=== PATIENT | female | born 1965 | race African-American/Black ===

== ENCOUNTER 2016-11-21 19:52 | Inpatient (IN) | payer BC ==
[2016-11-21] MEDS ORDERED: ASPIRIN 81 MG TABLET, CHEWABLE PO ONE (20:42)
[2016-11-21] MEDS ORDERED: NORMAL SALINE 1000 ML 1,000 ML IV ONE (20:42)
--- NOTE | 2016-11-21 20:44 | ER Document Report ---
ED Medical Screen (RME) - General Chief Complaint: Chest Pressure Stated Complaint: DIFFICULTY BREATHING Time Seen by Provider: 11/21/16 20:42 Notes: Patient is a 51-year-old female who presents 8 hours of left-sided chest pain and shortness of breath while she was eating lunch. She has never had symptoms like this before. She had a 102 fever earlier today. Denies hemoptysis, leg swelling, back pain, cough, abdominal pain, recent travel or estrogen use. PE: Tachycardia, Lungs CTAB, No respiratory distress. I have greeted and performed a rapid initial assessment of this patient. A comprehensive ED assessment and evaluation of the patient, analysis of test results and completion of the medical decision making process will be conducted by additional ED providers. TRAVEL OUTSIDE OF THE [place] IN LAST 30 DAYS: No - Related Data Allergies/Adverse Reactions: No Known Allergies Allergy (Unverified 11/21/16 20:39) Past Medical History Renal/ Medical History: Denies: Hx Peritoneal Dialysis Physical Exam - Vital signs Vitals: Temp Pulse Resp BP Pulse Ox 98.7 F 124 H 32 H 164/82 H 100 11/21/16 20:06 11/21/16 20:06 11/21/16 20:06 11/21/16 20:06 11/21/16 20:06 Course - Vital Signs Vital signs: Temp Pulse Resp BP Pulse Ox 98.7 F 124 H 32 H 164/82 H 100 11/21/16 20:06 11/21/16 20:06 11/21/16 20:06 11/21/16 20:06 11/21/16 20:06
--- NOTE | 2016-11-21 20:56 | RADIOLOGY REPORT (SQ) ---
EXAM DESCRIPTION: CHEST PA/LAT COMPLETED DATE/TIME: 11/21/2016 8:29 pm REASON FOR STUDY: chest pain, SOB COMPARISON: None. EXAM PARAMETERS: NUMBER OF VIEWS: two views TECHNIQUE: Digital Frontal and Lateral radiographic views of the chest acquired. RADIATION DOSE: NA LIMITATIONS: none FINDINGS: LUNGS AND PLEURA: No pneumothorax. Left basilar airspace disease and small pleural effusi on. Right lung appears clear. MEDIASTINUM AND HILAR STRUCTURES: No masses or contour abnormalities. HEART AND VASCULAR STRUCTURES: Heart normal size. No evidence for failure. BONES: No acute findings. HARDWARE: None in the chest. OTHER: No other significant finding. IMPRESSION: Left basilar airspace disease and small pleural effusion. TECHNICAL DOCUMENTATION: JOB ID: [id number] [employer]- All Rights Reserved
[2016-11-21 20:58] LABS: ABSOLUTE LYMPHOCYTES (AUTO) 1.1 10^3/uL (0.5-4.7); BASOPHILS % (AUTO) 0.4 % (0-2); EOSINOPHILS % (AUTO) 0.2 % (0-6); HEMATOCRIT 30.4 % (36.0-47.0); HEMOGLOBIN 9.8 g/dL (12.0-15.5); LYMPHOCYTES % (AUTO) 10.5 % (13-45); MEAN CORPUSCULAR HEMOGLOBIN 23.8 pg (27.0-33.4); MEAN CORPUSCULAR VOLUME 74 fl (80-97); MONOCYTES % (AUTO) 9.7 % (3-13); RED BLOOD COUNT 4.09 10^6/uL (3.72-5.28); RED CELL DISTRIBUTION WIDTH 18.4 % (11.5-14.0); SEGMENTED NEUTROPHILS % (AUTO) 79.2 % (42-78); WHITE BLOOD COUNT 10.2 10^3/uL (4.0-10.5)
--- NOTE | 2016-11-21 21:05 | ER Document Report ---
ED General - General Chief Complaint: Chest Pressure Stated Complaint: DIFFICULTY BREATHING Time Seen by Provider: 11/21/16 20:42 Notes: Patient is a 51-year-old female without past medical history who presents with acute onset of chest pain shortness of breath approximately 6 hours prior to arrival. Patient notes that while she was eating lunch she suddenly developed acute shortness of breath and a feeling of diffuse chest wall pain which she described as a sharp, constant pain. Nothing improves or worsens her pain. Denies any history of similar symptoms in the past. No history of DVT or pulmonary embolus, no use of estrogen. She denies any cardiac history. Denies any hemoptysis. No leg swelling or recent travel. TRAVEL OUTSIDE OF THE [place] IN LAST 30 DAYS: No - Related Data Allergies/Adverse Reactions: No Known Allergies Allergy (Unverified 11/21/16 20:39) Home Medications: Current Home Medications No Home Medications 11/22/16 [History] Past Medical History - General Information source: Patient - Social History Smoking Status: Never Smoker Chew tobacco use (# tins/day): No Frequency of alcohol use: None Drug Abuse: None Lives with: Spouse/Significant other Family History: Reviewed & Not Pertinent Patient has suicidal ideation: No Patient has homicidal ideation: No Renal/ Medical History: Denies: Hx Peritoneal Dialysis Surgical Hx: Negative - Immunizations Hx Diphtheria, Pertussis, Tetanus Vaccination: No Review of Systems - Review of Systems Notes: Constitutional: Negative for fever. HENT: Negative for sore throat. Eyes: Negative for visual changes. Cardiovascular: Positive for chest pain. Respiratory: Positive for shortness of breath. Gastrointestinal: Negative for abdominal pain, vomiting or diarrhea. Genitourinary: Negative for dysuria. Musculoskeletal: Negative for back pain. Skin: Negative for rash. Neurological: Negative for headaches, weakness or numbness. 10 point ROS negative except as marked above and in HPI. Physical Exam - Vital signs Vitals: Temp Pulse Resp BP Pulse Ox 98.7 F 124 H 32 H 164/82 H 100 11/21/16 20:06 11/21/16 20:06 11/21/16 20:06 11/21/16 20:06 11/21/16 20:06 Interpretation: Tachycardic, Tachypneic Notes: PHYSICAL EXAMINATION: GENERAL: Appears mildly uncomfortable but in no acute distress. HEAD: Atraumatic, normocephalic. EYES: Pupils equal round and reactive to light, extraocular movements intact, sclera anicteric, conjunctiva are normal. ENT: nares patent, oropharynx clear without exudates. Moist mucous membranes. NECK: Normal range of motion, supple without lymphadenopathy LUNGS: Breath sounds clear to auscultation bilaterally and equal. No wheezes rales or rhonchi. Moderate tachypnea HEART: Regular tachycardia without murmurs ABDOMEN: Soft, nontender, normoactive bowel sounds. No guarding, no rebound. No masses appreciated. EXTREMITIES: Normal range of motion, no pitting or edema. No cyanosis. NEUROLOGICAL: No focal neurological deficits. Moves all extremities spontaneously and on command. PSYCH: Normal mood, normal affect. SKIN: Warm, Dry, normal turgor, no rashes or lesions noted. Course - Re-evaluation Re-evalutation: 11/21/16 21:06 Presentation of chest pain in an otherwise well appearing patient. Low clinical suspicion for ACS given clinical history, exam, EKG without ST elevations or depressions, and negative initial troponin. HEART score less than or equal to 3. CXR without evidence of pneumothorax or pneumonia. No widened mediastinum. Aortic dissection also seems unlikely given history, symmetric pulses, CXR, and vitals. My primary concern for this patient is that she has an acute pulmonary embolus given that she is tachycardic, tachypneic and had acute onset of her chest pain and shortness of breath. She also has a small pleural effusion at the left lung concerning again for an acute pulmonary embolus. Due to the degree of my clinical suspicion, will proceed directly to a CTA. 11/21/16 22:54 CT demonstrated bilateral pulmonary emboli consistent with my pretest concern. Patient will be given a dose of Lovenox 75 mg subcutaneously. I discussed this case with Dr. Junior Hutchinson who will admit. I have discussed the findings of the CT scan with the patient as well as her need for admission. On reassessment her vitals have mostly improved with her tachycardia now resolved rate at 84 this time. She however remained mildly tachypneic with a respiratory rate of 28 at the time of my assessment. However she is saturating 100% on room air and is in no respiratory distress. - Vital Signs Vital signs: Temp Pulse Resp BP Pulse Ox 98.7 F 124 H 26 H 132/71 H 100 11/21/16 20:07 11/21/16 20:07 11/22/16 00:01 11/21/16 23:01 11/22/16 00:01 - Laboratory Result Diagrams: 11/21/16 20:45 11/21/16 20:45 Laboratory results interpreted by me: 11/21/16 11/21/16 11/21/16 20:45 20:45 20:45 Hgb 9.8 L Hct 30.4 L MCV 74 L MCH 23.8 L RDW 18.4 H Seg Neutrophils % 79.2 H Lymphocytes % 10.5 L Sodium 136.7 L Glucose 143 H Iron 16.3 L Total Protein 8.6 H - Diagnostic Test Radiology reviewed: Image reviewed, Reports reviewed Radiology results interpreted by me: 11/21/16 21:07 Chest x-ray: Left pleural effusion - EKG Interpretation by Me Additional EKG results interpreted by me: 11/21/16 21:07 Sinus tachycardia. Rate 112. No ST elevations or depressions. QTC is 416. Discharge - Discharge Clinical Impression: Bilateral pulmonary embolism Disposition: ADMITTED INPATIENT Admitting Provider: [facility] Admitted: Telemetry
[2016-11-21 21:21] LABS: ALANINE AMINOTRANSFERASE 23 U/L (9-52); ALBUMIN 4.6 g/dL (3.5-5.0); ALKALINE PHOSPHATASE 54 U/L (38-126); ANION GAP 13 (5-19); ASPARTATE AMINO TRANSFERASE 21 U/L (14-36); BILIRUBIN,DIRECT 0.3 mg/dL (0.0-0.4); BILIRUBIN,TOTAL 0.5 mg/dL (0.2-1.3); BLOOD UREA NITROGEN 8 mg/dL (7-20); CALCIUM 9.9 mg/dL (8.4-10.2); CARBON DIOXIDE 22 mmol/L (22-30); CHLORIDE 102 mmol/L (98-107); CREATINE KINASE 88 U/L (30-135); CREATININE RESULT 0.64 mg/dL (0.52-1.25); GLUCOSE 143 mg/dL (75-110); POTASSIUM 4.2 mmol/L (3.6-5.0); SODIUM 136.7 mmol/L (137-145); TOTAL PROTEIN 8.6 g/dL (6.3-8.2)
[2016-11-21 21:35] LABS: TROPONIN I < 0.012 ng/mL
--- NOTE | 2016-11-21 22:45 | RADIOLOGY REPORT (SQ) ---
EXAM DESCRIPTION: CTA CHEST COMPLETED DATE/TIME: 11/21/2016 10:27 pm REASON FOR STUDY: sob, eval pe COMPARISON: None. TECHNIQUE: CT scan of the chest performed using helical scanning technique with dynamic intravenous contrast injection. Images reviewed with lung, soft tissue and bone windows. Reconstructed coronal and sagittal MPR images reviewed. Additional 3 dimensional post-processing performed to develop Maximal Intensity Projection images (CT P). All images stored on PACS. All CT scanners at this facility use dose modulation, iterative reconstruction, and/or weight based d osing when appropriate to reduce radiation dose to as low as reasonably achievable (ALARA). [facility]: Dose Right [facility]: CareDose [facility]: Dose Right [facility]: Teradose 4D [facility]: [email or web address] CONTRAST TYPE AND DOSE: 100 mL Isovue 370- low osmolar. RENAL FUNCTION: GFR > 60. RADIATION DOSE: 21.14 mGy. LIMITATIONS: None. FINDINGS: LUNGS AND PLEURA: Small left pleural effusion. Scattered areas of atelectasis and ground- glass opacity are present in the lingula and left lower lobe. No pneumothorax. AORTA AND GREAT VESSELS: No aneurysm or dissection. HEART: No pericardial effusion. PULMONARY ARTERIES: Multiple emboli visualized in the lower lobe pulmonary arteries . No saddle or m ain pulmonary artery embolus. HILAR AND MEDIASTINAL STRUCTURES: No identified masses or abnormal nodes. HARDWARE: None in the chest. UPPER ABDOMEN: No significant findings. Limited exam. THYROID AND OTHER SOFT TISSUES: No masses. No adenopathy. BONES: No acute or significant finding. 3D MIPS: Confirm above findings. OTHER: No other significant finding. IMPRESSION: Multiple emboli visualized in the lower lobe pulmonary arteries . Small left pleural eff usion. Scattered areas of atelectasis and ground-glass opacity are present in the lingula and left l ower lobe. COMMENT: These results were communicated to Dr. Penn at 2238 hours. Results were confirmed and re ad back. TECHNICAL DOCUMENTATION: JOB ID: [id number] Quality ID # [id number]: Final reports with documentation of one or more dose reduction techniques (e.g., Au tomated exposure control, adjustment of the mA and/or kV according to patient size, use of iterative reconstruction technique) 2010 [employer]- All Rights Reserved
[2016-11-21] MEDS ORDERED: ACETAMINOPHEN 325 MG TABLET PO PRN (22:48)
[2016-11-21] MEDS ORDERED: MAGNESIUM HYDROXIDE SUSP 30 ML UDCUP PO PRN (22:48)
[2016-11-21] MEDS ORDERED: ONDANSETRON HCL INJ/PF 4 MG/2 ML SDV IV PRN (22:48)
[2016-11-21] MEDS ORDERED: IPRATROPIUM/ALBUTEROL 0.5-2.5 MG/3 ML AMPUL NEB PRN (22:48)
[2016-11-21] MEDS ORDERED: ENOXAPARIN SODIUM INJ 80 MG/0.8 ML DISP.SYRIN SUBCUT ONE (23:45)
[2016-11-22] MEDS ORDERED: IRON POLYSACCHARIDES COMPLEX 150 MG CAPSULE PO ONE (01:15)
[2016-11-22 03:06] LABS: ANION GAP 10 (5-19); BLOOD UREA NITROGEN 6 mg/dL (7-20); CALCIUM 9.1 mg/dL (8.4-10.2); CARBON DIOXIDE 21 mmol/L (22-30); CHLORIDE 109 mmol/L (98-107); CREATINE KINASE 75 U/L (30-135); CREATININE RESULT 0.57 mg/dL (0.52-1.25); GLUCOSE 116 mg/dL (75-110); POTASSIUM 4.1 mmol/L (3.6-5.0); SODIUM 139.5 mmol/L (137-145)
[2016-11-22 03:17] LABS: CREATINE KINASE MB 0.25 ng/mL (<4.55)
[2016-11-22 03:19] LABS: TROPONIN I < 0.012 ng/mL
--- NOTE | 2016-11-22 04:49 | PDOC H&P ---
History of Present Illness Admission Date/PCP: 11/21/16 22:48 Patient complains of: Shortness of breath History of Present Illness: GEETA PERAZA is a 51 year old female without past medical history who noted an abrupt onset of shortness of breath and nonproductive cough prompting to seek evaluation in the emergency room. She is found to have tachycardia, hypertension, tachypnea and bilateral pulmonary emboli, started on Lovenox and referred to the hospitalist for admission. Denies chest pain nausea vomiting or diaphoresis. She denies tobacco, recent history of immobility leg swelling trauma or infection. No regular medication use, no family history of blood clot. Number no recent colonoscopy, mammogram or Pap smear. Past Medical History Medical History: None EENT Medical History: Reports: None Neurological Medical History: Reports: None Renal/ Medical History: Reports: None Malignancy Medical History: Reports: None GI Medical History: Reports: None Musculoskeltal Medical History: Reports: None Skin Medical History: Reports: None Psychiatric Medical History: Reports: None Traumatic Medical History: Reports: None Hematology: Reports: None Infectious Medical History: Reports: None Social History Information Source: Patient Lives with: Spouse/Significant other Smoking Status: Never Smoker Drugs: None - Advance Directive Resuscitation Status: Full Code Family History Family History: Malignancy - Lung cancer in grandmother and mother Parental Family History Reviewed: Yes Children Family History Reviewed: Yes Sibling(s) Family History Reviewed.: Yes Medication/Allergy Home Medications: No Home Medications 11/22/16 Allergies/Adverse Reactions: No Known Allergies Allergy (Unverified 11/21/16 20:39) Review of Systems Constitutional: ABSENT: chills, fever(s), headache(s), weight gain, weight loss Eyes: ABSENT: visual disturbances Ears: ABSENT: hearing changes Cardiovascular: ABSENT: chest pain, dyspnea on exertion, edema, orthropnea, palpitations Respiratory: ABSENT: cough, hemoptysis Gastrointestinal: ABSENT: abdominal pain, constipation, diarrhea, hematemesis, hematochezia, nausea, vomiting Genitourinary: ABSENT: dysuria, hematuria Musculoskeletal: ABSENT: joint swelling Integumentary: ABSENT: rash, wounds Neurological: ABSENT: abnormal gait, abnormal speech, confusion, dizziness, focal weakness, syncope Psychiatric: ABSENT: anxiety, depression, homidical ideation, suicidal ideation Endocrine: ABSENT: cold intolerance, heat intolerance, polydipsia, polyuria Hematologic/Lymphatic: ABSENT: easy bleeding, easy bruising Physical Exam Vital Signs: Temp Pulse Resp BP Pulse Ox 98.7 F 124 H 26 H 132/71 H 100 11/21/16 20:07 11/21/16 20:07 11/22/16 00:01 11/21/16 23:01 11/22/16 00:01 General appearance: PRESENT: no acute distress, well-developed, well-nourished Head exam: PRESENT: atraumatic, normocephalic Eye exam: PRESENT: conjunctiva pink, EOMI, PERRLA. ABSENT: scleral icterus Ear exam: PRESENT: normal external ear exam Mouth exam: PRESENT: moist, tongue midline Neck exam: ABSENT: carotid bruit, JVD, lymphadenopathy, thyromegaly Respiratory exam: PRESENT: clear to auscultation aron. ABSENT: rales, rhonchi, wheezes Cardiovascular exam: PRESENT: RRR. ABSENT: diastolic murmur, rubs, systolic murmur Pulses: PRESENT: normal dorsalis pedis pul Vascular exam: PRESENT: normal capillary refill GI/Abdominal exam: PRESENT: normal bowel sounds, soft. ABSENT: distended, guarding, mass, organolmegaly, rebound, tenderness Rectal exam: PRESENT: deferred Extremities exam: PRESENT: full ROM. ABSENT: calf tenderness, clubbing, pedal edema Neurological exam: PRESENT: alert, awake, oriented to person, oriented to place , oriented to time, oriented to situation, CN II-XII grossly intact. ABSENT: motor sensory deficit Psychiatric exam: PRESENT: appropriate affect, normal mood. ABSENT: homicidal ideation, suicidal ideation Skin exam: PRESENT: dry, intact, warm. ABSENT: cyanosis, rash Results Laboratory Results: 11/22/16 02:35 11/22/16 02:35 Sodium 139.5 Potassium 4.1 Chloride 109 H Carbon Dioxide 21 L Anion Gap 10 BUN 6 L Creatinine 0.57 Est GFR ( Amer) > 60 Est GFR (Non-Af Amer) > 60 Glucose 116 H Calcium 9.1 11/22/16 11/22/16 02:35 02:35 Creatine Kinase 75 CK-MB (CK-2) 0.25 Troponin I < 0.012 Impressions: Chest X-Ray 11/21/16 20:17 IMPRESSION: Left basilar airspace disease and small pleural effusion. Chest/Abdomen CTA 11/21/16 21:05 IMPRESSION: Multiple emboli visualized in the lower lobe pulmonary arteries . Small left pleural effusion. Scattered areas of atelectasis and ground-glass opacity are present in the lingula and left lower lobe. Assessment & Plan - Diagnosis (1) Anemia Is this a current diagnosis for this admission?: YesPlan: Microcytic anemia likely secondary to an deficiency. She denies menorrhagia darker pink colored urine dark or red stools. Iron initiated empirically, anemia workup ordered follow-up CBC pending. (2) Bilateral pulmonary embolism Is this a current diagnosis for this admission?: YesPlan: acute problem, hemodynamically stable, Lovenox 1 mg/kg ordered, hematology consult pending for unprovoked PE complicated by family history of malignancy. - Time Time Spent: 50 to 70 Minutes - Inpatient Certification Medical Necessity: Need Close Monitoring Due to Risk of Patient Decompensation
--- NOTE | 2016-11-22 07:15 | EKG REPORT ---
SEVERITY:- ABNORMAL ECG - SINUS TACHYCARDIA NONSPECIFIC T ABNORMALITIES, DIFFUSE LEADS : Confirmed by: Charisse Orona MD 22-Nov-2016 07:13:56
[2016-11-22 09:07] LABS: CREATINE KINASE MB 0.24 ng/mL (<4.55)
[2016-11-22 09:11] LABS: TROPONIN I < 0.012 ng/mL
[2016-11-22] MEDS: DOCUSATE SODIUM 100 MG CAPSULE PO SCH ×2 (10:14→17:02)
[2016-11-22] MEDS: IRON POLYSACCHARIDES COMPLEX 150 MG CAPSULE PO SCH (10:14)
[2016-11-22] MEDS: ENOXAPARIN SODIUM INJ 80 MG/0.8 ML DISP.SYRIN SUBCUT SCH ×2 (10:14→23:49)
[2016-11-22] MEDS ORDERED: MAGNESIUM HYDROXIDE SUSP 30 ML UDCUP PO PRN (13:22)
[2016-11-22] MEDS ORDERED: ACETAMINOPHEN 325 MG TABLET PO PRN (13:23)
[2016-11-22] MEDS ORDERED: ONDANSETRON HCL INJ/PF 4 MG/2 ML SDV IV PRN (13:23)
--- NOTE | 2016-11-22 14:34 | PDOC PROGRESS REPORT ---
Subjective Progress Note for:: 11/22/16 Subjective:: Patient is seen on morning rounds. She is presently resting in bed. She denies any acute shortness of breath or dyspnea. She does admit to some midsternal chest discomfort with deep inspiration. She denies any cough. She has not had any recent upper respiratory infections. She states her shortness of breath occurred acutely yesterday. She denies any other complaints at the present time. Rest of the review of systems is negative Physical Exam Vital Signs: Temp Pulse Resp BP Pulse Ox 98.2 F 119 H 18 125/69 93 11/22/16 12:24 11/22/16 14:13 11/22/16 12:24 11/22/16 12:24 11/22/16 12:24 General appearance: PRESENT: no acute distress, well-developed, well-nourished Head exam: PRESENT: atraumatic Eye exam: PRESENT: conjunctival injection Ear exam: PRESENT: normal external ear exam Mouth exam: PRESENT: moist, tongue midline Neck exam: ABSENT: carotid bruit, JVD, lymphadenopathy, thyromegaly Respiratory exam: PRESENT: crackles, symmetrical, unlabored - left base Cardiovascular exam: PRESENT: RRR. ABSENT: diastolic murmur, rubs, systolic murmur Pulses: PRESENT: normal dorsalis pedis pul Vascular exam: PRESENT: normal capillary refill GI/Abdominal exam: PRESENT: normal bowel sounds, soft. ABSENT: distended, guarding, mass, organolmegaly, rebound, tenderness Rectal exam: PRESENT: deferred Extremities exam: PRESENT: full ROM. ABSENT: calf tenderness, clubbing, pedal edema Neurological exam: PRESENT: alert, awake, oriented to person, oriented to place , oriented to time, oriented to situation, CN II-XII grossly intact. ABSENT: motor sensory deficit Psychiatric exam: PRESENT: appropriate affect, normal mood. ABSENT: homicidal ideation, suicidal ideation Skin exam: PRESENT: dry, intact, warm. ABSENT: cyanosis, rash Results Laboratory Results: 11/22/16 02:35 11/22/16 02:35 Sodium 139.5 Potassium 4.1 Chloride 109 H Carbon Dioxide 21 L Anion Gap 10 BUN 6 L Creatinine 0.57 Est GFR ( Amer) > 60 Est GFR (Non-Af Amer) > 60 Glucose 116 H Calcium 9.1 11/22/16 11/22/1611/22/17 02:35 02:35 08:26 Creatine Kinase 75 64 CK-MB (CK-2) 0.25 Troponin I < 0.012 11/22/16 08:26 Creatine Kinase CK-MB (CK-2) 0.24 Troponin I < 0.012 Impressions: Chest X-Ray 11/21/16 20:17 IMPRESSION: Left basilar airspace disease and small pleural effusion. Chest/Abdomen CTA 11/21/16 21:05 IMPRESSION: Multiple emboli visualized in the lower lobe pulmonary arteries . Small left pleural effusion. Scattered areas of atelectasis and ground-glass opacity are present in the lingula and left lower lobe. Assessment & Plan - Diagnosis (1) Bilateral pulmonary embolism Is this a current diagnosis for this admission?: YesPlan: Patient on therapeutic lovenox. Hematology consulted (2) Iron deficiency anemia Qualifiers: Iron deficiency anemia type: unspecified iron deficiency Qualified Code(s): D50.9 - Iron deficiency anemia, unspecified Is this a current diagnosis for this admission?: YesPlan: Hematology consulted. Patient is aware of history of this but has taken no supplements (3) Ground glass opacity present on imaging of lung Is this a current diagnosis for this admission?: YesPlan: Left lower lobe will obtain pulmonary's input - Time Time Spent with patient: 25-34 minutes Critical Time spent with patient: 15-24 minutes Medications reviewed and adjusted accordingly: Yes Anticipated discharge: Home
[2016-11-22 15:19] LABS: CREATINE KINASE MB < 0.22 ng/mL (<4.55); TROPONIN I < 0.012 ng/mL
--- NOTE | 2016-11-22 23:48 | RADIOLOGY REPORT (SQ) ---
EXAM DESCRIPTION: CT ABD/PELVIS WITH IV ORAL COMPLETED DATE/TIME: 11/22/2016 11:26 pm REASON FOR STUDY: Cancer/Bilat PE COMPARISON: None. TECHNIQUE: CT scan of the abdomen and pelvis performed using helical scanning technique with dynamic intravenous contrast injection and with oral contrast. Images reviewed with lung, soft tissue, and b one windows. Reconstructed coronal and sagittal MPR images reviewed. Delayed images for evaluation of the urinary system also acquired. All images stored on PACS. All CT scanners at this facility use dose modulation, iterative reconstruction, and/or weight based d osing when appropriate to reduce radiation dose to as low as reasonably achievable (ALARA). [facility]: Dose Right [facility]: CareDose [facility]: Dose Right [facility]: Teradose 4D [facility]: [employer] CONTRAST TYPE AND DOSE: 100mL Isovue 370- low osmolar. RENAL FUNCTION: BUN 6 creatinine 0.57. RADIATION DOSE: 33.84mGy. LIMITATIONS: None. FINDINGS: LOWER CHEST: Small left pleural effusion with basilar atelectasis. LIVER: Normal size. No masses or dilated ducts. SPLEEN: Normal size. No focal lesions. PANCREAS: No masses. No significant calcifications. No adjacent inflammation or peripancreatic fluid collections. Pancreatic duct not dilated. GALLBLADDER: No identified stones by CT criteria. No inflammatory changes to suggest cholecystitis. ADRENAL GLANDS: No significant masses or asymmetry. RIGHT KIDNEY AND URETER: No solid masses. No significant calcifications. Mild hydronephrosis and hydroureter. LEFT KIDNEY AND URETER: No solid masses. No significant calcifications. Mild hydronephrosis and h ydroureter. AORTA AND VESSELS: No aneurysm. No dissection. Renal arteries, SMA, celiac without stenosis. RETROPERITONEUM: No retroperitoneal adenopathy, hemorrhage or masses. BOWEL AND PERITONEAL CAVITY: Large mass filling the abdomen which appears to originate in the pelvis. Heterogenous predominately solid mass. Transverse measurement 15.5 cm, AP measurement 9.3 cm, cran iocaudal measurement 17 cm. No free fluid. No bowel dilation or bowel wall thickening. APPENDIX: Normal. PELVIS: Large mass extending into the abdomen. Normal bladder. ABDOMINAL WALL: No masses. No hernias. BONES: No significant or acute findings. OTHER: No other significant finding. IMPRESSION: 1. LARGE MASS WHICH LIKELY ORIGINATES IN THE PELVIS, EXTENDING INTO THE ABDOMEN. PROBABLY ORIGINATIN G FROM ONE OF THE OVARIES OR POTENTIALLY FROM THE UTERUS. MILD HYDRONEPHROSIS AND HYDROURETER DUE TO EXTRINSIC COMPRESSION OF THE URETERS. 2. NO OTHER SIGNIFICANT FINDINGS IN THE ABDOMEN OR PELVIS. THERE IS A SMALL LEFT PLEURAL EFFUSION WI TH ATELECTASIS IN THE LUNG BASES. TECHNICAL DOCUMENTATION: JOB ID: [id number] Quality ID # [id number]: Final reports with documentation of one or more dose reduction techniques (e.g., Au tomated exposure control, adjustment of the mA and/or kV according to patient size, use of iterative reconstruction technique) 2010 [employer]- All Rights Reserved
--- NOTE | 2016-11-23 | RADIOLOGY REPORT (SQ) ---
EXAM DESCRIPTION: CT SOFT TISSUE NECK WITH COMPLETED DATE/TIME: 11/22/2016 11:26 pm REASON FOR STUDY: Cancer/BiLat PE COMPARISON: None. TECHNIQUE: Post IV contrasted scanning from skull base through lung apices with review of bone, soft tissue and lung windows. Reconstructed coronal and sagittal MPR images reviewed. All images stored on PACS. All CT scanners at this facility use dose modulation, iterative reconstruction, and/or weight based d osing when appropriate to reduce radiation dose to as low as reasonably achievable (ALARA). [facility]: Dose Right [facility]: CareDose [facility]: Dose Right [facility]: Teradose 4D [facility]: [employer] CONTRAST TYPE AND DOSE: 100mL Isovue 370- low osmolar. RENAL FUNCTION: BUN 6 creatinine 0.57. RADIATION DOSE: 7.64 mGy. LIMITATIONS: None. FINDINGS: SKULL BASE: Intact. MAJOR SALIVARY GLANDS: No solid or cystic masses. No inflammatory changes. LYMPHADENOPATHY: No adenopathy. MUCOSAL MASSES OR ASYMMETRY: No mucosal masses or asymmetry. LARYNX/CORDS: No abnormal findings. VASCULAR STRUCTURES: The major vessels are patent. LUNG APICES: Left pleural effusion. Pulmonary emboli seen on recent chest CTA. BONES: Intact. THYROID: Normal size. No masses. PARANASAL SINUSES: Clear. OTHER: No other significant finding. IMPRESSION: NO SIGNIFICANT FINDING IN THE SOFT TISSUES OF THE NECK. TECHNICAL DOCUMENTATION: JOB ID: [id number] Quality ID # [id number]: Final reports with documentation of one or more dose reduction techniques (e.g., Au tomated exposure control, adjustment of the mA and/or kV according to patient size, use of iterative reconstruction technique) 2010 [employer]- All Rights Reserved
[2016-11-23 06:04] LABS: HEMATOCRIT 29.2 % (36.0-47.0); HEMOGLOBIN 9.1 g/dL (12.0-15.5); HGB HCT DIFFERENCE -1.9; MEAN CORPUSCULAR HEMOGLOBIN 23.6 pg (27.0-33.4); MEAN CORPUSCULAR HGB CONC 31.3 g/dL (32.0-36.0); MEAN CORPUSCULAR VOLUME 76 fl (80-97); RED BLOOD COUNT 3.86 10^6/uL (3.72-5.28); RED CELL DISTRIBUTION WIDTH 18.2 % (11.5-14.0); WHITE BLOOD COUNT 7.1 10^3/uL (4.0-10.5)
[2016-11-23 06:36] LABS: ANION GAP 13 (5-19); BLOOD UREA NITROGEN 6 mg/dL (7-20); CALCIUM 8.9 mg/dL (8.4-10.2); CARBON DIOXIDE 21 mmol/L (22-30); CHLORIDE 105 mmol/L (98-107); CREATININE RESULT 0.57 mg/dL (0.52-1.25); GLUCOSE 89 mg/dL (75-110); LDH 475 U/L (313-618); POTASSIUM 4.3 mmol/L (3.6-5.0); SODIUM 139.3 mmol/L (137-145)
[2016-11-23 07:08] LABS: CARCINOEMBRYONIC ANTIGEN 1.9 ng/mL (<3.0)
--- NOTE | 2016-11-23 07:38 | PDOC CONSULTATION ---
Consultation Consult Date: 11/22/16 Consult reason:: PE History of Present Illness Admission Date/PCP: 11/21/16 22:48 History of Present Illness: GEETA PERAZA is a 51 year old AA female without past medical history who noted an abrupt onset of shortness of breath and nonproductive cough suddenly on the day of admit prompting her to seek evaluation in the emergency room. She is found to have tachycardia, hypertension, tachypnea and bilateral pulmonary emboli, started on Lovenox and referred to the hospitalist for admission. Denies chest pain nausea vomiting or diaphoresis. She denies tobacco, recent history of immobility leg swelling trauma or infection, regular medication use , no family history of blood clot, recent travel hormone use. She denies any recent colonoscopy, mammogram or Pap smear. Past Medical History EENT Medical History: Reports: None Neurological Medical History: Reports: None Renal/ Medical History: Reports: None Malignancy Medical History: Reports: None GI Medical History: Reports: None Musculoskeltal Medical History: Reports: None Skin Medical History: Reports: None Psychiatric Medical History: Reports: None Traumatic Medical History: Reports: None Hematology: Reports: None Infectious Medical History: Reports: None Social History Lives with: Spouse/Significant other Smoking Status: Never Smoker Drugs: None - Advance Directive Resuscitation Status: Full Code Family History Family History: Malignancy - Lung cancer in grandmother and mother Parental Family History Reviewed: Yes Children Family History Reviewed: Yes Sibling(s) Family History Reviewed.: Yes Medication/Allergy Home Medications: Multivits-Min/Iron/FA/Lutein [Centrum Silver Women Tablet] 1 tab PO DAILY Allergies/Adverse Reactions: No Known Allergies Allergy (Unverified 11/21/16 20:39) Review of Systems Constitutional: PRESENT: as per HPI Cardiovascular: PRESENT: as per HPI Respiratory: PRESENT: as per HPI Genitourinary: PRESENT: other - still menustrating Physical Exam Vital Signs: Temp Pulse Resp BP Pulse Ox 98.8 F 95 19 119/65 99 11/23/16 03:11 11/23/16 03:11 11/23/16 03:11 11/23/16 03:11 11/23/16 03:11 Intake & Output 11/22/16 11/23/16 11/24/16 06:59 06:59 06:59 Intake Total 1396 Output Total 950 Balance 446 Weight 72.8 kg General appearance: PRESENT: no acute distress Head exam: PRESENT: atraumatic, normocephalic Eye exam: PRESENT: EOMI, PERRLA Ear exam: PRESENT: normal external ear exam Neck exam: PRESENT: other - Left posterior cervical and occipital LN's rather fixed and firm Respiratory exam: PRESENT: clear to auscultation aron Cardiovascular exam: PRESENT: bradycardia Pulses: PRESENT: normal carotid pulses, normal femoral pulses GI/Abdominal exam: PRESENT: normal bowel sounds, soft Extremities exam: PRESENT: full ROM Neurological exam: PRESENT: alert, awake, oriented to person, oriented to place , oriented to time, oriented to situation, CN II-XII grossly intact Psychiatric exam: PRESENT: appropriate affect Results Laboratory Results: 11/23/16 05:22 11/23/16 05:22 11/23/16 11/23/16 05:22 05:22 WBC 7.1 RBC 3.86 Hgb 9.1 L Hct 29.2 L MCV 76 L MCH 23.6 L MCHC 31.3 L RDW 18.2 H Plt Count 297 Sodium 139.3 Potassium 4.3 Chloride 105 Carbon Dioxide 21 L Anion Gap 13 BUN 6 L Creatinine 0.57 Est GFR ( Amer) > 60 Est GFR (Non-Af Amer) > 60 Glucose 89 Calcium 8.9 11/22/16 11/22/16 11/22/16 02:35 02:35 08:26 Creatine Kinase 75 64 CK-MB (CK-2) 0.25 Troponin I < 0.012 11/22/16 11/22/16 11/22/16 08:26 14:09 14:09 Creatine Kinase 57 CK-MB (CK-2) 0.24 < 0.22 Troponin I < 0.012 < 0.012 Impressions: Chest X-Ray 11/21/16 20:17 IMPRESSION: Left basilar airspace disease and small pleural effusion. Chest/Abdomen CTA 11/21/16 21:05 IMPRESSION: Multiple emboli visualized in the lower lobe pulmonary arteries . Small left pleural effusion. Scattered areas of atelectasis and ground-glass opacity are present in the lingula and left lower lobe. Abdomen/Pelvis CT 11/22/16 00:00 IMPRESSION: 1. LARGE MASS WHICH LIKELY ORIGINATES IN THE PELVIS, EXTENDING INTO THE ABDOMEN. PROBABLY ORIGINATING FROM ONE OF THE OVARIES OR POTENTIALLY FROM THE UTERUS. MILD HYDRONEPHROSIS AND HYDROURETER DUE TO EXTRINSIC COMPRESSION OF THE URETERS. 2. NO OTHER SIGNIFICANT FINDINGS IN THE ABDOMEN OR PELVIS. THERE IS A SMALL LEFT PLEURAL EFFUSION WITH ATELECTASIS IN THE LUNG BASES. Soft Tissue Neck CT 11/22/16 00:00 IMPRESSION: NO SIGNIFICANT FINDING IN THE SOFT TISSUES OF THE NECK. Assessment & Plan - Diagnosis (1) Bilateral pulmonary embolism Is this a current diagnosis for this admission?: YesPlan: Proceed with hypercoaguable workup including tumor markers but given her lymph nodes will check a CT of the neck, abdomen and pelvis as well. Would then convert to Xarelto if no masses seen or biopsy expected. Also check her stool guaiacs. (2) Iron deficiency anemia Qualifiers: Iron deficiency anemia type: unspecified iron deficiency Qualified Code(s): D50.9 - Iron deficiency anemia, unspecified Is this a current diagnosis for this admission?: YesPlan: Continue with oral iron and check her stool guaiacs. - Time Time Spent: 50 to 70 Minutes Critical Time spent with patient: 25-34 minutes Medications reviewed and adjusted accordingly: Yes Anticipated discharge: Home Within: within 36 hours
--- NOTE | 2016-11-23 09:12 | PDOC PROGRESS REPORT ---
Subjective Progress Note for:: 11/23/16 Subjective:: Feeling better this am. Denies any abdominal pain. Less febrile and short of breath. Physical Exam Vital Signs: Temp Pulse Resp BP Pulse Ox 98.8 F 95 19 119/65 99 11/23/16 03:11 11/23/16 03:11 11/23/16 03:11 11/23/16 03:11 11/23/16 03:11 Intake & Output 11/22/16 11/23/16 11/24/16 06:59 06:59 06:59 Intake Total 1396 Output Total 950 Balance 446 Weight 72.8 kg General appearance: PRESENT: no acute distress Head exam: PRESENT: normocephalic Eye exam: PRESENT: conjunctiva pale, EOMI Mouth exam: PRESENT: moist GI/Abdominal exam: PRESENT: soft, other - On deep palpation with palpable fullness in the right to mid abdomen Psychiatric exam: PRESENT: appropriate affect Results Laboratory Results: 11/23/16 05:22 11/23/16 05:22 11/23/16 11/23/16 05:22 05:22 WBC 7.1 RBC 3.86 Hgb 9.1 L Hct 29.2 L MCV 76 L MCH 23.6 L MCHC 31.3 L RDW 18.2 H Plt Count 297 Sodium 139.3 Potassium 4.3 Chloride 105 Carbon Dioxide 21 L Anion Gap 13 BUN 6 L Creatinine 0.57 Est GFR ( Amer) > 60 Est GFR (Non-Af Amer) > 60 Glucose 89 Calcium 8.9 11/22/16 11/22/16 11/22/16 02:35 02:35 08:26 Creatine Kinase 75 64 CK-MB (CK-2) 0.25 Troponin I < 0.012 11/22/16 11/22/16 11/22/16 08:26 14:09 14:09 Creatine Kinase 57 CK-MB (CK-2) 0.24 < 0.22 Troponin I < 0.012 < 0.012 Impressions: Chest X-Ray 11/21/16 20:17 IMPRESSION: Left basilar airspace disease and small pleural effusion. Chest/Abdomen CTA 11/21/16 21:05 IMPRESSION: Multiple emboli visualized in the lower lobe pulmonary arteries . Small left pleural effusion. Scattered areas of atelectasis and ground-glass opacity are present in the lingula and left lower lobe. Abdomen/Pelvis CT 11/22/16 00:00 IMPRESSION: 1. LARGE MASS WHICH LIKELY ORIGINATES IN THE PELVIS, EXTENDING INTO THE ABDOMEN. PROBABLY ORIGINATING FROM ONE OF THE OVARIES OR POTENTIALLY FROM THE UTERUS. MILD HYDRONEPHROSIS AND HYDROURETER DUE TO EXTRINSIC COMPRESSION OF THE URETERS. 2. NO OTHER SIGNIFICANT FINDINGS IN THE ABDOMEN OR PELVIS. THERE IS A SMALL LEFT PLEURAL EFFUSION WITH ATELECTASIS IN THE LUNG BASES. Soft Tissue Neck CT 11/22/16 00:00 IMPRESSION: NO SIGNIFICANT FINDING IN THE SOFT TISSUES OF THE NECK. Assessment & Plan - Diagnosis (1) Bilateral pulmonary embolism Is this a current diagnosis for this admission?: YesPlan: Continue Lovenox and discussed findings on her CT scan. Her tumor markers are pending. Have contacted Dr. Witt in [place] who is a [employer] Room Worker Oncologists and would like her transferred in order to place an IVC filter and assess for surgery. She may also need a ureteral stent. They would like a CD sent as well. (2) Iron deficiency anemia Qualifiers: Iron deficiency anemia type: unspecified iron deficiency Qualified Code(s): D50.9 - Iron deficiency anemia, unspecified Is this a current diagnosis for this admission?: YesPlan: Continue oral iron. - Time Time Spent with patient: 25-34 minutes Critical Time spent with patient: 25-34 minutes Medications reviewed and adjusted accordingly: Yes Anticipated discharge: [facility] Torres Within: within 24 hours
[2016-11-23] MEDS: ENOXAPARIN SODIUM INJ 80 MG/0.8 ML DISP.SYRIN SUBCUT SCH (09:21)
[2016-11-23] MEDS: IRON POLYSACCHARIDES COMPLEX 150 MG CAPSULE PO SCH (09:21)
[2016-11-23] MEDS: DOCUSATE SODIUM 100 MG CAPSULE PO SCH (09:21)
--- NOTE | 2016-11-23 10:09 | PDOC TRANSFER SUMMARY ---
General Admission Date/PCP: 11/21/16 22:48 Transfer Date: 11/23/16 [facility] Resuscitation Status: Full Code - Transfer Diagnosis (1) Pelvic mass in female Is this a current diagnosis for this admission?: YesDiagnosis Summary: Patient will be transferred to [facility] to Dr Guillorys, data center architect oncologist, service for vena caval filter, possible ureter stent and work up for data center architect surgery. Patient is in agreement to the plan (2) Bilateral pulmonary embolism Is this a current diagnosis for this admission?: YesDiagnosis Summary: Continue therapeutic lovenox (3) Iron deficiency anemia Is this a current diagnosis for this admission?: YesDiagnosis Summary: Continue oral iron supplement (4) Ground glass opacity present on imaging of lung Is this a current diagnosis for this admission?: Yes - Transfer Medications Transfer Medications: Current Medications Acetaminophen (Tylenol 325 Mg Tablet) 650 mg PO Q4HP PRN PRN Reason: FOR PAIN OR TEMP Stop: 12/21/16 22:47 Albuterol/Ipratropium (Duoneb 3 Ml Ampul) 3 ml NEB RTQ6HP PRN PRN Reason: SHORTNESS OF BREATH Stop: 12/21/16 22:47 Docusate Sodium (Colace 100 Mg Capsule) 100 mg PO BID HITESH Stop: 12/22/16 09:59 Last Admin: 11/23/16 09:21 Dose: 100 mg Enoxaparin Sodium (Lovenox Inj 80 Mg/0.8 Ml Disp.Syrin) 75 mg SUBCUT Q12 HITESH Stop: 12/22/16 09:59 Last Admin: 11/23/16 09:21 Dose: 75 mg Magnesium Hydroxide (Milk Of Magnesia 30 Ml Udcup) 30 ml PO HSP PRN PRN Reason: FOR CONSTIPATION Stop: 12/21/16 22:47 Ondansetron HCl (Zofran Inj/Pf 4 Mg/2 Ml Sdv) 4 mg IV Q8HP PRN PRN Reason: FOR NAUSEA/VOMITING Stop: 12/21/16 22:47 Polysaccharide Iron Complex (Nu-Iron 150 Capsule) 150 mg PO DAILY HITESH Stop: 12/22/16 09:59 Last Admin: 11/23/16 09:21 Dose: 150 mg - Allergies Allergies/Adverse Reactions: No Known Allergies Allergy (Unverified 11/21/16 20:39) - Diet/Activity Discharge Diet: Regular Discharge Activity: Activity As Tolerated, Energy Conservation Hospital Course Hospital Course: Patient was admitted to telemetry on the hospitalist service. She was started on lovenox therapy for her bilateral pulmonary emboli. Dr Tiera Washburn, oncologist/manager data was consulted. CT of the abdomen and pelvis was obtained that shows a large pelvic mass possibly originating from the right ovary or uterus. There is mild right ureter compression with mild hydronephrosis. The patient denies any abdominal or pelvic pain. She is still having monthly menses. She denies any dysuria. Dr Smith spoke with Dr Magdalena Kevin at [facility] regarding this patient. She would like patient transferred for venal caval stenting, right ureter stent and work up for data center architect surgery. Plan was discussed with patient. She verbalized understanding of the situation and is in agreement to the transfer. Today her shortness of breath is much improved. She is not requiring any supplemental oxygen at the present time. Physical Exam Vital Signs: Temp Pulse Resp BP Pulse Ox 98.3 F 95 16 123/71 96 11/23/16 07:22 11/23/16 07:22 11/23/16 07:22 11/23/16 07:22 11/23/16 07:22 Intake & Output 11/22/16 11/23/16 11/24/16 06:59 06:59 06:59 Intake Total 1396 Output Total 950 Balance 446 Weight 72.8 kg General appearance: PRESENT: no acute distress, well-developed, well-nourished Head exam: PRESENT: atraumatic, normocephalic Eye exam: PRESENT: conjunctiva pink, EOMI, PERRLA. ABSENT: scleral icterus Ear exam: PRESENT: normal external ear exam Mouth exam: PRESENT: moist, tongue midline Neck exam: ABSENT: carotid bruit, JVD, lymphadenopathy, thyromegaly Respiratory exam: PRESENT: clear to auscultation aron. ABSENT: rales, rhonchi, wheezes Cardiovascular exam: PRESENT: RRR. ABSENT: diastolic murmur, rubs, systolic murmur Pulses: PRESENT: normal dorsalis pedis pul Vascular exam: PRESENT: normal capillary refill GI/Abdominal exam: PRESENT: normal bowel sounds, soft. ABSENT: distended, guarding, mass, organolmegaly, rebound, tenderness Rectal exam: PRESENT: deferred Extremities exam: PRESENT: full ROM. ABSENT: calf tenderness, clubbing, pedal edema Neurological exam: PRESENT: alert, awake, oriented to person, oriented to place , oriented to time, oriented to situation, CN II-XII grossly intact. ABSENT: motor sensory deficit Psychiatric exam: PRESENT: appropriate affect, normal mood. ABSENT: homicidal ideation, suicidal ideation Skin exam: PRESENT: dry, intact, warm. ABSENT: cyanosis, rash Results Laboratory Results: 11/23/16 05:22 11/23/16 05:22 11/23/16 11/23/16 05:22 05:22 WBC 7.1 RBC 3.86 Hgb 9.1 L Hct 29.2 L MCV 76 L MCH 23.6 L MCHC 31.3 L RDW 18.2 H Plt Count 297 Sodium 139.3 Potassium 4.3 Chloride 105 Carbon Dioxide 21 L Anion Gap 13 BUN 6 L Creatinine 0.57 Est GFR ( Amer) > 60 Est GFR (Non-Af Amer) > 60 Glucose 89 Calcium 8.9 11/22/16 11/22/16 11/22/16 02:35 02:35 08:26 Creatine Kinase 75 64 CK-MB (CK-2) 0.25 Troponin I < 0.012 11/22/16 11/22/16 11/22/16 08:26 14:09 14:09 Creatine Kinase 57 CK-MB (CK-2) 0.24 < 0.22 Troponin I < 0.012 < 0.012 Impressions: Chest X-Ray 11/21/16 20:17 IMPRESSION: Left basilar airspace disease and small pleural effusion. Chest/Abdomen CTA 11/21/16 21:05 IMPRESSION: Multiple emboli visualized in the lower lobe pulmonary arteries . Small left pleural effusion. Scattered areas of atelectasis and ground-glass opacity are present in the lingula and left lower lobe. Abdomen/Pelvis CT 11/22/16 00:00 IMPRESSION: 1. LARGE MASS WHICH LIKELY ORIGINATES IN THE PELVIS, EXTENDING INTO THE ABDOMEN. PROBABLY ORIGINATING FROM ONE OF THE OVARIES OR POTENTIALLY FROM THE UTERUS. MILD HYDRONEPHROSIS AND HYDROURETER DUE TO EXTRINSIC COMPRESSION OF THE URETERS. 2. NO OTHER SIGNIFICANT FINDINGS IN THE ABDOMEN OR PELVIS. THERE IS A SMALL LEFT PLEURAL EFFUSION WITH ATELECTASIS IN THE LUNG BASES. Soft Tissue Neck CT 11/22/16 00:00 IMPRESSION: NO SIGNIFICANT FINDING IN THE SOFT TISSUES OF THE NECK. Plan Discharge Plan: Transfer to [facility]
--- NOTE | 2016-11-23 12:51 | RADIOLOGY REPORT (SQ) ---
EXAM DESCRIPTION: VENOUS BILATERAL LOWER COMPLETED DATE/TIME: 11/23/2016 12:42 pm REASON FOR STUDY: Bilat PE COMPARISON: None. TECHNIQUE: Dynamic and static edwards scale and color images acquired of both lower extremity venous sy stems. Selected spectral images acquired with additional compression and augmentation maneuvers. Imag es stored on PACS. LIMITATIONS: None. FINDINGS: RIGHT LEG COMMON FEMORAL AND FEMORAL: Normal phasicity, compression and augmentation. No visualized echogenic m aterial on edwards scale. No defects on color images. POPLITEAL: Normal compression and augmentation. No visualized echogenic material on edwards scale. No de fects on color images. CALF VESSELS: Normal compression and augmentation. No visualized echogenic material on edwards scale. No defects on color image. GSV AND SSV: Normal compression. No visualized echogenic material on edwards scale. No defects on color images. ANY DEEP VENOUS INSUFFICIENCY: Not evaluated. ANY EVIDENCE OF POPLITEAL CYST: No. OTHER: No other significant finding. LEFT LEG COMMON FEMORAL AND FEMORAL: Normal phasicity, compression and augmentation. No visualized echogenic m aterial on edwards scale. No defects on color images. POPLITEAL: Normal compression and augmentation. No visualized echogenic material on edwards scale. No de fects on color images. CALF VESSELS: Normal compression and augmentation. No visualized echogenic material on edwards scale. No defects on color images. GSV AND SSV: Normal compression. No visualized echogenic material on edwards scale. No defects on color images. ANY DEEP VENOUS INSUFFICIENCY: Not evaluated. ANY EVIDENCE POPLITEAL CYST: No. OTHER: No other significant finding. IMPRESSION: NO EVIDENCE DVT OR SVT IN EITHER LEG. TECHNICAL DOCUMENTATION: JOB ID: [id number]- All Rights Reserved
[2016-11-23 13:35] VITALS: BP 124/71
== END 2016-11-23 14:53 | disposition short-term general hospital (02) | DRG 176 ==
LOC: ER 19:52 → EH 22:48 → UNDOADMIN 23:14 → 4S 11-22 01:20
PROVIDERS: ADMIT Internal Medicine; ATTEND Internal Medicine
DX: I26.99 Other pulmonary embolism without acute cor pulmonale (principal); I10 Essential (primary) hypertension; D50.9 Iron deficiency anemia, unspecified; R19.00 Intra-abdominal and pelvic swelling, mass and lump, unspecified site; R00.0 Tachycardia, unspecified
CPT/HCPCS: 36415; 70491; 71020; 71275; 74177; 80048; 80053; 81291; 82378; 82550; 82553; 82607; 82728; 82746; 83540; 83550; 83615; 83880; 84484; 85025; 85027; 85045; 85379; 86300; 86304; 93005; 93010; 93970; 99285; J1650; J7030

== ENCOUNTER → 2018-11-29 | Outpatient (CLI) | payer BC ==
[2018-11-29 09:25] LABS: ABSOLUTE LYMPHOCYTES (AUTO) 1.4 10^3/uL (0.5-4.7); ABSOLUTE MONOCYTES (AUTO) 0.4 10^3/uL (0.1-1.4); ABSOLUTE NEUT (AUTO) 1.6 10^3/uL (1.7-8.2); BASOPHILS % (AUTO) 0.7 % (0-2); EOSINOPHILS % (AUTO) 1.4 % (0-6); HEMATOCRIT 40.4 % (36.0-47.0); HEMOGLOBIN 13.7 g/dL (12.0-15.5); LYMPHOCYTES % (AUTO) 40.5 % (13-45); MEAN CORPUSCULAR HEMOGLOBIN 30.4 pg (27.0-33.4); MEAN CORPUSCULAR VOLUME 90 fl (80-97); MONOCYTES % (AUTO) 12.7 % (3-13); PLATELET COUNT 221 10^3/uL (150-450); RED BLOOD COUNT 4.52 10^6/uL (3.72-5.28); RED CELL DISTRIBUTION WIDTH 13.8 % (11.5-14.0); SEGMENTED NEUTROPHILS % (AUTO) 44.7 % (42-78); TOTAL CELLS COUNTED % (AUTO) 100 %; WHITE BLOOD COUNT 3.5 10^3/uL (4.0-10.5)
[2018-11-29 09:46] LABS: ALANINE AMINOTRANSFERASE 21 U/L (9-52); ALBUMIN 4.7 g/dL (3.5-5.0); ALKALINE PHOSPHATASE 49 U/L (38-126); ANION GAP 8 (5-19); ASPARTATE AMINO TRANSFERASE 18 U/L (14-36); BILIRUBIN,DIRECT 0.3 mg/dL (0.0-0.4); BILIRUBIN,TOTAL 0.4 mg/dL (0.2-1.3); BLOOD UREA NITROGEN 16 mg/dL (7-20); CALCIUM 9.9 mg/dL (8.4-10.2); CARBON DIOXIDE 28 mmol/L (22-30); CHLORIDE 105 mmol/L (98-107); CHOLESTEROL 243.26 mg/dL (0-200); GLUCOSE 99 mg/dL (75-110); POTASSIUM 5.1 mmol/L (3.6-5.0); SODIUM 141.4 mmol/L (137-145); TOTAL PROTEIN 8.2 g/dL (6.3-8.2); TRIGLYCERIDES 47 mg/dL (<150)
[2018-11-29 09:57] LABS: DIRECT LDL 112 mg/dL (<100)
[2018-12-01 13:37] LABS: HEPATITIS C VIRUS AB <0.1 s/co ratio (0.0-0.9)
== END ==
LOC: OD 08:11
PROVIDERS: ATTEND Physician Assistant
DX: Z00.00 Encounter for general adult medical examination without abnormal findings (principal)
CPT/HCPCS: 36415; 80053; 80061; 83036; 84443; 85025; 86803; 86804

== ENCOUNTER → 2019-12-02 | Outpatient (CLI) | payer BC, MEDICAID ==
--- NOTE | 2019-12-03 07:27 | WOMENS IMAGING REPORT ---
EXAM DESCRIPTION: 3D SCREENING MAMMO BILAT IMAGES COMPLETED DATE/TIME: 12/02/2019 7:33 am REASON FOR STUDY: Z12.31 SCREENING MAMMO Z12.31 ENCNTR SCREEN MAMMOGRAM FOR MALIGNANT NEOPLASM OF B RE COMPARISON: Baseline study EXAM PARAMETERS: Views: Standard craniocaudal and mediolateral oblique views of each breast recorded using digital acquisition and breast tomosynthesis. Read with the assistance of CAD. .FORMERLY [facility], [facility] - [facility] [employer] Version 9.2 LIMITATIONS: None. FINDINGS: No suspicious masses, suspicious calcifications or architectural distortion. No areas of c oncern. IMPRESSION: NEGATIVE MAMMOGRAM. BIRADS 1. BREAST DENSITY: b. There are scattered areas of fibroglandular density. BIRAD: ASSESSMENT: 1 NEGATIVE RECOMMENDATION: ROUTINE SCREENING COMMENT: The patient has been notified of the results by letter per SA requirements. Additional no tification policies are in place for contacting patient with suspicious or incomplete findings. Quality ID #[id number]: The [employer] recommends an annual screening mammogram for women aged 40 years or over. This facility utilizes a reminder system to ensure that all patients receive reminder letters, and/or direct phone calls for appointments. This includes reminders for routine scr eening mammograms, diagnostic mammograms, or other Breast Imaging Interventions when appropriate. Th is patient will be placed in the appropriate reminder system. TECHNICAL DOCUMENTATION: FINDING NUMBER: (1) ASSESSMENT: (1) JOB ID: [id number] 2010 [employer]- All Rights Reserved Reading location - IP/workstation name: [phone]
== END ==
LOC: WI 07:04
PROVIDERS: ATTEND Family Medicine
DX: Z12.31 Encounter for screening mammogram for malignant neoplasm of breast (principal)
CPT/HCPCS: 77063; 77067